=== PATIENT | female | born 1990 | race Two or more races ===

== ENCOUNTER 2019-02-15 20:36 | Emergency (ER) | payer MEDICAID ==
[~2019-02-15] VITALS: Ht 157.5 cm; Wt 84.4 kg
[2019-02-15 20:42] VITALS: BP 147/104
[2019-02-15] MEDS ORDERED: ONDANSETRON 4 MG TAB.RAPDIS SL ONE (21:00)
[2019-02-15] MEDS ORDERED: PROCHLORPERAZINE EDISYLATE 10 MG/2 ML VIAL IM ONE (21:00)
[2019-02-15] MEDS ORDERED: KETOROLAC TROMETHAMINE INJ 60 MG/2 ML VIAL IM ONE (21:00)
[2019-02-15] MEDS ORDERED: PROCHLORPERAZINE EDISYLATE 10 MG/2 ML VIAL ONE (21:01)
[2019-02-15] MEDS ORDERED: ONDANSETRON 4 MG TAB.RAPDIS ONE (21:01)
[2019-02-15] MEDS ORDERED: KETOROLAC TROMETHAMINE INJ 30 MG/ML VIAL ONE (21:01)
== END 2019-02-15 21:55 | disposition home or self-care (01) ==
LOC: ER 20:42
DX: G43.909 Migraine, unspecified, not intractable, without status migrainosus (principal); F17.200 Nicotine dependence, unspecified, uncomplicated; Z60.2 Problems related to living alone
CPT/HCPCS: 96372 ×2; 99283; J0780; J1885; Q0162